=== PATIENT | male | born 1995 | race Caucasian/White ===

== ENCOUNTER 2016-09-04 14:34 | Emergency (ER) | payer SELFPAY ==
[2016-09-04] MEDS ORDERED: NS 1,000 ML IV ONE ×2 (14:42→16:31)
--- NOTE | 2016-09-04 14:48 | EDPHY ---
H & P Time Seen by Provider: 09/04/16 14:45 HPI/ROS: HPI: 21-year-old male brought into emergency department by EMS found down by the [place] after bystanders called 911 due to altered mental status. An ambulance patient was verbal with slurred speech, moving all extremities. When PD was present, he would not say anything. 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 Unable to obtain further HPI due to mental status. ROS: Unable to obtain due to mental status. (Allie Johnston) Past Medical/Surgical History: Unknown (Allie Johnston) Social History: States that he lives in [place], in a veterinary spring internship (Allie Johnston) Physical Exam: Vital signs reviewed by me General: Awake, alert, calm, cooperative. No acute distress. Head: Normalocephalic. Atraumatic. Face: Minor abrasion right forehead EENT: PERRLA. Pupils 6+ bilaterally. No pallor or injection. Anicteric. Conjunctivae 0 injection. TMs intact bilaterally with normal landmarks. No rhinnorhea, nasal passages clear. Oropharynx without redness, exudates, or lesions. Neck: Supple, nontender. No lymphadenopathy. Full range of motion. No meningismus. Respiratory: Breathing unlabored. Breath sounds equal bilaterally and clear to auscultation. No adventitious sounds. CV: Chest nontender, atraumatic. Heart rate regular. No murmur, distal pulses 2+ bilaterally. Brisk cap refill all extremities. GI: Abdomen soft, nontender. Bowel sounds normoactive and positive x4 quadrants. Back: Atraumatic Neuro: Awakens to voice. Slurred speech. Follows commands. Strength 5+ all extremities Skin: Skin warm, dry, intact. Bilateral knee abrasions Skin turgor normal. Extremities: Full range of motion in all 4 extremities. (Allie Johnston) Constitutional: Initial Vital Signs Temperature (C) 36.6 C 09/04/16 14:53 Heart Rate 84 09/04/16 14:53 Respiratory Rate 18 09/04/16 14:53 Blood Pressure 117/85 H 09/04/16 14:53 O2 Sat (%) 95 09/04/16 14:53 O2 Delivery Mode Nasal Cannula O2 (L/minute) 2 Medical Decision Making - Diagnostics Imaging Results: Imaging Impressions Head CT 09/04/16 14:49 Impression: 1. Normal CT brain without contrast. 2. No epidural or subdural hematoma. 3. Consider MRI of the brain without and with contrast enhancement, if there is continued clinical concern. Findings and recommendations discussed with Emergency Department nurse practitioner, Allie Johnston, at 1615 hours, 09/04/2016. Final report concurs with initial preliminary interpretation. ED Course/Re-evaluation: 21-year-old male presents to emergency department brought in by EMS found down with altered mental status. Awakens to voice, largely nonverbal. Strength 5+ all extremities. Placed in 2 point restraints as patient flails his arms and legs and is a danger to self at this time. CT head negative for evidence of intracranial bleed or skull fracture. White count 48717. H&H is stable. Alcohol level 186. EKG shows a sinus rhythm, IVCD. Given 2 L normal saline. 1800: Re-evaluation shows pupils 4+ bilaterally and reactive. Strength 5+ all extremities. Answers "1997" to every question asked presently. Patient was placed back in 2 point restraints as he kept trying to get out of bed on his own. 1830: Care of this patient transferred to my colleague Dr. Sreekanth Van (Allie Johnston) 7:45 p.m. the patient is ambulatory. He is eating. He is clinically sober. ( Sreekanth Van) Differential Diagnosis: Differential diagnosis includes but is not limited to alcohol intoxication, polysubstance abuse, head injury, intracranial bleed, skull fracture, infection , metabolic derangement (Allie Johnston) - Data Points Laboratory Results: Laboratory Results 09/04/16 14:49 09/04/16 14:49 09/04/16 09/04/16 14:49 14:49 WBC 10.33 10^3/uL H 10^3/uL (3.80-9.50) RBC 6.07 10^6/uL 10^6/uL (4.40-6.38) Hgb 18.2 g/dL H g/dL (13.7-17.5) Hct 50.2 % % (40.0-51.0) MCV 82.7 fL fL (81.5-99.8) MCH 30.0 pg pg (27.9-34.1) MCHC 36.3 g/dL g/dL (32.4-36.7) RDW 11.5 % % (11.5-15.2) Plt Count 211 10^3/uL 10^3/uL (150-400) MPV 12.4 fL H fL (8.7-11.7) Neut % (Auto) 59.9 % % (39.3-74.2) Lymph % (Auto) 31.8 % % (15.0-45.0) [place] % (Auto) 6.5 % % (4.5-13.0) Eos % (Auto) 0.8 % % (0.6-7.6) Baso % (Auto) 0.6 % % (0.3-1.7) Nucleat RBC Rel Count 0.0 % % (0.0-0.2) Absolute Neuts (auto) 6.19 10^3/uL 10^3/uL (1.70-6.50) Absolute Lymphs (auto) 3.29 10^3/uL H 10^3/uL (1.00-3.00) Absolute Monos (auto) 0.67 10^3/uL 10^3/uL (0.30-0.80) Absolute Eos (auto) 0.08 10^3/uL 10^3/uL (0.03-0.40) Absolute Basos (auto) 0.06 10^3/uL 10^3/uL (0.02-0.10) Absolute Nucleated RBC 0.00 10^3/uL 10^3/uL (0-0.01) Immature Gran % 0.4 % % (0.0-1.1) Immature Gran # 0.04 10^3/uL 10^3/uL (0.00-0.10) Sodium 143 mEq/L mEq/L (134-144) Potassium 3.7 mEq/L mEq/L (3.5-5.2) Chloride 108 mEq/L mEq/L (97-110) Carbon Dioxide 20 mEq/l L mEq/l (22-31) Anion Gap 15 mEq/L mEq/L (8-16) BUN 10 mg/dL mg/dL (7-23) Creatinine 0.8 mg/dL mg/dL (0.7-1.3) Estimated GFR > 60 Glucose 99 mg/dL mg/dL (70-100) Calcium 9.6 mg/dL mg/dL (8.5-10.4) Ethyl Alcohol 186 mg/dL H mg/dL (0-10) Departure - Departure Disposition: Home, Routine, Self-Care Clinical Impression: Alcohol intoxication Qualifiers: Complication of substance-induced condition: uncomplicated Qualified Code(s): F10.120 - Alcohol abuse with intoxication, uncomplicated Condition: Good Instructions: Alcohol Intoxication (ED) Referrals: Patient,NotPresent [Primary Care Provider] - As per Instructions
[2016-09-04 14:57] LABS: % IMMATURE GRANULYOCYTES 0.4 % (0.0-1.1); ABSOLUTE IMMATURE GRANULOCYTES 0.04 10^3/uL (0.00-0.10); ADD DIFF? NO; ADD MORPH? NO; ADD SCAN? NO; ATYPICAL LYMPHOCYTE FLAG 10 (0-99); FRAGMENT RBC FLAG 0 (0-99); HEMATOCRIT 50.2 % (40.0-51.0); HEMOGLOBIN 18.2 g/dL (13.7-17.5); LEFT SHIFT FLG 0 (0-99); LIPEMIA HEMOLYSIS FLAG 90 (0-99); MEAN CELL HEMOGLOBIN CONCENTR. 36.3 g/dL (32.4-36.7); MEAN CELL VOLUME 82.7 fL (81.5-99.8); MEAN PLATELET VOLUME 12.4 fL (8.7-11.7); PLATELET CLUMPS FLAG 0 (0-99); PLATELET COUNT 211 10^3/uL (150-400); RED BLOOD CELL COUNT 6.07 10^6/uL (4.40-6.38); RED CELL DISTRIBUTION WIDTH 11.5 % (11.5-15.2)
[2016-09-04 15:09] LABS: ANION GAP 15 mEq/L (8-16); CALCIUM 9.6 mg/dL (8.5-10.4); CARBON DIOXIDE 20 mEq/l (22-31); CHLORIDE 108 mEq/L (97-110); CREATININE 0.8 mg/dL (0.7-1.3); ETHANOL SERUM 186 mg/dL (0-10); GLOMERULAR FILTRATION RATE > 60; GLUCOSE 99 mg/dL (70-100); POTASSIUM 3.7 mEq/L (3.5-5.2); SODIUM 143 mEq/L (134-144)
--- NOTE | 2016-09-04 15:09 | CPEKG ---
Heart Rate: 66 RR Interval: 909 P-R Interval: 164 QRSD Interval: 118 QT Interval: 380 QTC Interval: 399 P Stacy: 40 QRS Stacy: 23 T Wave Stacy: 19 EKG Severity - ABNORMAL ECG - EKG Impression: SINUS RHYTHM EKG Impression: NONSPECIFIC INTRAVENTRICULAR CONDUCTION DELAY EKG Impression: No acute ischemicChanges or arrhythmia or interval abnormalities Electronically Signed By: Sreekanth Van 04-Sep-2016 15:21:32
[2016-09-04 20:09] VITALS: BP 103/53; PULSE 70; RESP 14; TEMP 97.9; O2SAT 95
== END 2016-09-04 20:18 | disposition home or self-care (01) ==
DX: F10.120 Alcohol abuse with intoxication, uncomplicated (principal)
CPT/HCPCS: G0480